=== PATIENT | male | born 1995 | race Caucasian/White ===

== ENCOUNTER 2020-02-12 14:39 | Outpatient (REF) | payer BC, SELFPAY ==
[2020-02-12 19:00] LABS: C Reactive Protein 0.02 mg/dL (< or = 0.50)
[2020-02-12 19:25] LABS: Erythrocyte Sedimentation Rate 2 MM/HR (0-15)
[2020-02-15 22:07] LABS: Lyme Abs Screen <0.90 index
[2020-02-16 13:08] LABS: A. Phagocytophilum Ab IgG <1:64 (<1:64); A. Phagocytophilum Ab IgM <1:20 (<1:20); E. Chaffeensis Ab IgG <1:64 (<1:64); E. Chaffeensis Ab IgM <1:20 (<1:20)
[2020-02-16 13:57] LABS: Babesia IgG <1:64 titer (<1:64); Babesia IgM <1:20 titer (<1:20)
== END 2020-02-12 14:40 | disposition home or self-care (01) ==
LOC: HO.MANLDS 14:39
PROVIDERS: PCP Physician Assistant; Visit Provider Physician Assistant
DX: R53.83 Other fatigue (principal)
CPT/HCPCS: 36415; 85652; 86140; 86618; 86666; 86753

== ENCOUNTER 2020-08-29 10:46 | Outpatient (REF) | payer BC, SELFPAY ==
[2020-08-31 09:36] LABS: Lyme Abs Screen <0.90 index
== END 2020-08-29 10:47 | disposition home or self-care (01) ==
LOC: HO.MANLDS 10:46
PROVIDERS: PCP Internal Medicine; Visit Provider Physician Assistant
DX: T14.8XXA Other injury of unspecified body region, initial encounter (principal); W57.XXXA Bitten or stung by nonvenomous insect and other nonvenomous arthropods, initial encounter; Y93.9 Activity, unspecified; Y92.9 Unspecified place or not applicable; Y99.9 Unspecified external cause status
CPT/HCPCS: 36415; 86617; 86618

== ENCOUNTER 2021-01-17 14:46 | Outpatient (REF) | payer BC, SELFPAY ==
[2021-01-17 19:32] LABS: MANUAL DIFF FLAG NO
[2021-01-17 19:33] LABS: Basophils Percent Auto 0.5 % (0-2); Eosinophils Absolute Auto 0.1 X10*3/uL (0.0-0.4); Eosinophils Percent Auto 1.8 % (0-4); Hematocrit 45.2 % (42-52); Hemoglobin 15.7 g/dl (14.0-18.0); Imm Gran Abs Auto 0.01 X10*3/uL (0.00-0.03); Imm Gran Pct Auto 0.2 % (0.0-0.4); Lymphocytes Absolute Auto 1.6 X10*3/uL (1.2-4.9); Lymphocytes Percent Auto 24.5 % (20-40); Mean Corpuscular HGB Conc 34.7 g/dl (31.0-36.0); Mean Corpuscular Hemoglobin 30.4 pg (27.0-33.0); Mean Corpuscular Volume 87.4 fL (80-98); Mean Platelet Volume 10.9 fL (9.4-12.4); Monocytes Absolute Auto 0.5 X10*3/uL (0.1-1.2); Monocytes Percent Auto 7.7 % (2-11); Neutrophils Absolute Auto 4.3 X10*3/uL (2.0-8.3); Neutrophils Percent Auto 65.3 % (45-73); Platelet Count 264 X10*3/uL (160-400); Red Blood Count 5.17 X10*6/uL (4.60-5.80); Red Cell Distribution Width 11.7 % (11.0-16.0); White Blood Count 6.6 X10*3/uL (4.8-10.8)
[2021-01-17 19:45] LABS: Alanine Aminotransferase 22 U/L (0-40); Albumin Level 4.5 g/dL (3.5-5.0); Alkaline Phosphatase 57 U/L (39-117); Anion Gap 10 (12-20); Aspartate Amino Transferase 16 U/L (5-37); Bilirubin Total 0.5 mg/dL (0.0-1.0); Blood Urea Nitrogen 11 mg/dL (9-16); Calcium 9.4 mg/dL (8.4-10.2); Carbon Dioxide 29 mmol/L (22-29); Chloride 104 mmol/L (96-108); Cholesterol 154 mg/dL; Estimated Glomerular Filt Rate > 60; Glucose Random 98 mg/dL (60-115); HDL Cholesterol 40 mg/dL; LDL Cholesterol Calculated 82 mg/dl; Potassium 3.9 mmol/L (3.3-5.1); Sodium 139 mmol/L (135-145); Total Protein 7.2 g/dL (6.5-8.0); Triglycerides 164 mg/dL
[2021-01-17 20:06] LABS: Free T4 (Free Thyroxine) 0.99 ng/dL (0.71-1.85); Thyroid Stimulating Hormone 1.03 uIU/mL (0.32-4.0); Vitamin D 25-OH Total 21.9 ng/mL (>30)
[2021-01-17 20:24] LABS: Folate 15.2 ng/mL (> or = 4.0); Vitamin B12 471 pg/mL (200-900)
== END 2021-01-17 14:47 | disposition home or self-care (01) ==
LOC: HO.MANLDS 14:46
PROVIDERS: PCP Physician Assistant; Visit Provider Physician Assistant
DX: Z00.00 Encounter for general adult medical examination without abnormal findings (principal); M79.10 Myalgia, unspecified site
CPT/HCPCS: 36415; 80053; 80061; 82306; 82607; 82746; 84439; 84443; 85025

== ENCOUNTER 2021-07-28 16:10 | Outpatient (REF) | payer BC, SELFPAY ==
[2021-07-31 22:22] LABS: Lyme Abs Screen <0.90 index
[2021-08-01 16:26] LABS: Babesia IgG <1:64 titer (<1:64); Babesia IgM <1:20 titer (<1:20)
[2021-08-02 04:32] LABS: A. Phagocytophilum Ab IgG <1:64 (<1:64); A. Phagocytophilum Ab IgM <1:20 (<1:20); E. Chaffeensis Ab IgG <1:64 (<1:64); E. Chaffeensis Ab IgM <1:20 (<1:20)
== END 2021-07-28 16:11 | disposition home or self-care (01) ==
LOC: HO.MANLDS 16:10
PROVIDERS: PCP Physician Assistant; Visit Provider Physician Assistant
DX: T14.8XXA Other injury of unspecified body region, initial encounter (principal); W57.XXXA Bitten or stung by nonvenomous insect and other nonvenomous arthropods, initial encounter
CPT/HCPCS: 36415; 86617; 86618; 86666; 86753

== ENCOUNTER 2021-08-14 11:23 | Outpatient (REF) | payer BC, SELFPAY ==
[2021-08-14 13:41] LABS: Alanine Aminotransferase 28 U/L (0-40); Albumin Level 4.3 g/dL (3.5-5.0); Alkaline Phosphatase 60 U/L (39-117); Anion Gap 12 (12-20); Aspartate Amino Transferase 19 U/L (5-37); Bilirubin Total 0.4 mg/dL (0.0-1.0); Blood Urea Nitrogen 12 mg/dL (9-16); Calcium 9.7 mg/dL (8.4-10.2); Carbon Dioxide 27 mmol/L (22-29); Chloride 102 mmol/L (96-108); Estimated Glomerular Filt Rate > 60; Glucose Random 84 mg/dL (60-115); Magnesium 2.3 mg/dL (1.6-2.6); Potassium 4.7 mmol/L (3.3-5.1); Sodium 136 mmol/L (135-145); Total Protein 7.2 g/dL (6.5-8.0)
[2021-08-14 14:06] LABS: Vitamin D 25-OH Total 20.2 ng/mL (>30)
[2021-08-14 14:14] LABS: Folate 17.2 ng/mL (> or = 4.0); Vitamin B12 514 pg/mL (200-900)
[2021-08-19 10:52] LABS: Vitamin B1 22 nmol/L (8-30)
== END 2021-08-14 11:24 | disposition home or self-care (01) ==
LOC: HO.MANLDS 11:23
PROVIDERS: PCP Internal Medicine; Visit Provider Physician Assistant
DX: R53.83 Other fatigue (principal)
CPT/HCPCS: 36415; 80053; 82306; 82607; 82746; 83735; 84425

== ENCOUNTER 2023-01-31 16:01 | Outpatient (REF) | payer BC, SELFPAY ==
[2023-01-31 16:16] LABS: MANUAL DIFF FLAG NO
[2023-01-31 16:36] LABS: Basophils Percent Auto 0.5 % (0-2); Eosinophils Absolute Auto 0.1 X10*3/uL (0.0-0.4); Hemoglobin 16.4 g/dl (14.0-18.0); Imm Gran Abs Auto 0.02 X10*3/uL (0.00-0.03); Imm Gran Pct Auto 0.2 % (0.0-0.4); Lymphocytes Absolute Auto 1.6 X10*3/uL (1.2-4.9); Lymphocytes Percent Auto 19.6 % (20-40); Mean Corpuscular HGB Conc 34.9 g/dl (31.0-36.0); Mean Corpuscular Volume 86.1 fL (80.0-98.0); Mean Platelet Volume 9.7 fL (9.4-12.4); Monocytes Absolute Auto 0.6 X10*3/uL (0.1-1.2); Monocytes Percent Auto 7.3 % (2-11); Neutrophils Absolute Auto 5.9 x10*3/uL (2.0-8.3); Neutrophils Percent Auto 71.4 % (45-73); Platelet Count 290 X10*3/uL (160-400); Red Blood Count 5.46 X10*6/uL (4.60-5.80); Red Cell Distribution Width 11.8 % (11.0-16.0); White Blood Count 8.3 X10*3/uL (4.8-10.8)
[2023-01-31 16:42] LABS: Estimated Average Glucose 94 mg/dL; Hemoglobin A1c % 4.9 % (<6.0)
[2023-01-31 16:55] LABS: Alanine Aminotransferase 30 U/L (0-40); Albumin Level 4.7 g/dL (3.5-5.0); Alkaline Phosphatase 68 U/L (39-117); Anion Gap 13 (12-20); Aspartate Amino Transferase 19 U/L (5-37); Bilirubin Total 0.6 mg/dL (0.0-1.0); Blood Urea Nitrogen 11 mg/dL (9-16); Calcium 9.8 mg/dL (8.4-10.2); Carbon Dioxide 30 mmol/L (22-29); Chloride 101 mmol/L (96-108); Cholesterol 187 mg/dL (<200); Estimated Glomerular Filt Rate > 60; Glucose Random 89 mg/dL (60-115); HDL Cholesterol 44 mg/dL (>40); LDL Cholesterol Calculated 117 mg/dL (<100); Potassium 3.9 mmol/L (3.3-5.1); Sodium 140 mmol/L (135-145); Total Protein 7.6 g/dL (6.5-8.0); Triglycerides 131 mg/dL (<150)
[2023-02-04 12:18] LABS: VITAMIN D (1,25 OH) D3 14 pg/mL; Vit D (1,25-Dihydroxy) Total 49 pg/mL (18-72); Vitamin D (1,25 OH) D2 35 pg/mL
== END 2023-01-31 16:02 | disposition home or self-care (01) ==
LOC: HO.LAB 16:01
PROVIDERS: PCP Physician Assistant; Visit Provider Physician Assistant
DX: Z00.00 Encounter for general adult medical examination without abnormal findings (principal); E55.9 Vitamin D deficiency, unspecified
CPT/HCPCS: 36415; 80053; 80061; 82652; 83036; 85025

== ENCOUNTER 2023-09-03 16:13 | Outpatient (REF) | payer BC, SELFPAY ==
[2023-09-06 06:25] LABS: Lyme Abs Screen <0.90 index
[2023-09-13 13:54] LABS: A. Phagocytophilum Ab IgG <1:64 (<1:64); A. Phagocytophilum Ab IgM <1:20 (<1:20); E. Chaffeensis Ab IgG <1:64 (<1:64); E. Chaffeensis Ab IgM <1:20 (<1:20)
[2023-09-15 12:49] LABS: Babesia IgG <1:64 titer (<1:64); Babesia IgM <1:20 titer (<1:20)
== END 2023-09-03 16:14 | disposition home or self-care (01) ==
LOC: HO.MANLDS 16:13
PROVIDERS: Visit Provider Internal Medicine
DX: T14.8XXA Other injury of unspecified body region, initial encounter (principal); W57.XXXA Bitten or stung by nonvenomous insect and other nonvenomous arthropods, initial encounter
CPT/HCPCS: 36415; 86617; 86618; 86666; 86753

== ENCOUNTER 2025-02-12 07:44 | Outpatient (REF) | payer OTHER, SELFPAY ==
--- OUTSIDE RECORDS SUMMARY | 2025-02-12 07:49 | XMS_ITS | Encounter Summary ---
Author Organization [facility] Address [facility] [employer] [address] [address] Phone Care Team Providers Care Ore Puncher Name Role Phone OvidioRamirez matos Primary Care Provider [phone] OvidioRamirez matos Unavailable Reason for Referral * Outpatient Procedure - Closed Specialty Diagnoses / Procedures Referred By Vikki olsen Referred To Contact Diagnoses Syncope and collapse Procedures Adult Echo TTE Rosio Paredes PA Phone: tel: fax: Referral ID Status Reason Start Date Expiration Date Visits Re quested Visits Authorized [id number] Closed 02/20/2022 02/20/2023 1 1 Encounter Details Date Type Department Care Team (Latest Contact Info) Description 02/20/2022 Transcribe Orders Virtual Department [address] [place] [phone] Rosio Paredes PA [address] [facility] [place] [address] [place] [address] Syncope and collapse Social History Tobacco Use Types Packs/Day Years Used Date Smoking Tobacco: Never Smokeless Tobacco: Never Sex and Gender Information Value Date Recorded Sex Assigned at Male 08/06/2019 5:28 PM EDT Legal Sex Male 11:59 AM EST Gender Identity Male 08/06/2019 5:28 PM EDT Sexual Orientation Not on file documented as of this encounter Plan of Treatment Not on file documented as of this encounter Results * TTE COMPREHENSIVE W/ AGITATED SALINE (04/26/2022 11:53 AM EST) Body Surface Area 1.97 m2 Height 175 cm Weight 82 kg Systolic BP 144 mmHg Diastolic BP 87 mmHg Left Atrium Dimension Anterior-Posterior 34 15 - 40 mm Aortic Valve Mean Gradient 4 mmHg Aortic Valve Time Velocity Integral 208 mm Aortic Valve Peak Velocity 124.0 cm/s Aortic Valve Peak Velocity 124.0 cm/s Aortic Valve Peak Gradient 6 mmHg Aortic Sinus Diameter 32 mm Ascending Aorta Diameter 32 mm Inferior Vena Cava Diameter 14 0.0 - 21 mm Interventricular Septum Thickness 8 mm Left Ventricle Internal Diameter End Diastole 50 42 - 58 mm Left Ventricle Internal Diameter End Systole 34 25 - 40 mm Left Ventricular Outflow Tract Diameter 25.0 mm LVOT VTI REST 166 mm Left Ventricular Outflow Tract Velocity 1.0 m/s Left Ventricular Outflow Tract Gradient at Rest 4 mmHg Left Ventricular Posterior Wall Thickness 9 mm Ejection Fraction 59 50 - 75 Percent Mitral Valve A Wave Speed 48.0 cm/s Mitral Valve E Wave Speed 78.8 cm/s Right Ventricle Basal Diameter 36 25 - 41 mm Raw LV EF% 54 % Left Atrial Volume 40 mL Left Atrial Volume Index 20.30 mL/m2 Right Ventricle TAPSE 19 mm Right Ventricle Pulse Doppler S Wave 14.0 cm/s Aortic Valve Sinus Index 1 16 20 - 32 mm Ascending Aorta Diameter 16 mm Aortic Sinus Index 16 mm Ascending Aorta Index 16 mm Anatomical Region Laterality Modality Heart Ultrasound Narrative 04/26/2022 3:22 PM EST Normal LV size and function EF 60%. Normal RV size and function. Normal diastolic function. Normal study. Bubble study was performed with and without Valsalva. There were some bubbles crossing with Valsalva. This is consistent with a very mild amount of right to left shunting likely due to a patent foramen ovale. Left Ventricle The left ventricular cavity size and wall thickness are normal. Left ventricular systolic function is normal. The estimated ejection fraction is 59% (Normal 50- 75%). The left ventricular ejection fraction was measured by the single dimension method. Left ventricular diastolic function appears within normal limits for age. There is no evidence of left ventricular thrombus. Right Ventricle The right ventricular size is normal. The right ventricular systolic function is normal. Left Atrium The left atrium is normal in size. The LA volume is 40 mL. The LA volume index is 20.3 mL/m2 (normal indexed value is 16-34 mL/m2). The pulmonary venous flow profiles are normal. Right Atrium The right atrium is normal in size. The IVC measures 14 mm (normal <=21 mm). The IVC demonstrates normal collapse with inspiration which is consistent with normal RA pressure. Mitral Valve E/A ratio is 1.6. E/E' avg is 5.8. Med E' velocity is 11.3cm/s. Lat E' velocity is 15.8cm/s. There is no evidence of mitral stenosis. There is no evidence of mitral valve prolapse. There is trace mitral regurgitation detected by spectral and color Doppler. Tricuspid Valve There is no evidence of tricuspid stenosis. There is no evidence of significant tricuspid regurgitation by color and spectral Doppler. Aortic Valve The aortic valve is tricuspid. There is no evidence of valvular aortic stenosis. The peak aortic valve gradient is 6 mmHg. The mean aortic gradient is 4 mmHg. There is no evidence of aortic regurgitation by color and spectral Doppler. The visualized portions of the thoracic aorta appear normal. Pulmonic Valve There is no evidence of pulmonic stenosis. There is evidence of trace pulmonary regurgitation by color and spectral Doppler. Pericardium There is no evidence of pericardial effusion. Interatrial Septum There is evidence of a patent foramen ovale by agitated saline contrast with Valsalva maneuver. General Findings Technically adequate echocardiogram. Technique(s) used in the evaluation: Color flow Doppler and Spectral Doppler. The predominant rhythm during the study was sinus. 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 It is not the complete legal health record.[facility]
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
--- OUTSIDE RECORDS SUMMARY | 2025-02-12 07:49 | XMS_ITS | Clinical Summary ---
Author Organization [facility] Address [address] [place] [address] Phone Care Team Providers Care Double Head Machine Operator Name Role Phone Ramirez Chatterjee DO Primary Care Provider [phone] Allergies No known active allergies Medications ergocalciferol (DRISDOL) 50,000 unit capsule Take 1 capsule by mouth once a week. 02/06/2024 Active Active Problems Problem Noted Date Diagnosed Date Attention deficit hyperactiv ity disorder, predominantly inattentive type 11/04/2018 Depressive disorder 11/04/2018 Methicillin resistant Staphylococcus aureus infe ction 11/04/2018 Migraine with aura 11/04/2018 Pneumonia 11/04/2018 Myofascial pain 11/04/2018 Scoliosis deformity of spine 11/04/2018 Immunizations Immunization Administration Dates Next Due COVID-19 (Pre-01/14) AstraZe neca Vaccine, rS-ChAdOx1, PF 07/07/2020,06/15/2020 DTaP 01/22/1997, 5,1993,05/10,1993 HPV,quadrivalent 09/02/2013,08/25/2012, 2 Hepatitis A, ped/adol, 2 dose 02/17/2014 Hepatitis B 1993,1993,1993 Hib,PRP-T 04/19/1994, 4,1993,03/06 Influenza quadrivalent nasal 03/13/2011 Influenza, Unspecified Formulation 03/11/2013 MMR 01/04/1998,04/19/1994 Meningococcal MCV4P 08/14/2011,04/18/2005 Polio - OPV 01/22/1997, 5,1993,03/06 Td, unspecified formulation 04/18/2005 Tdap 04/18/2005 Varicella 05/21/2007,02/17/1997 Social History Tobacco Use Types Packs/Day Years Used Date Smoking Tobacco: Never Smokeless Tobacco: Never Tobacco Cessation:Counseling Given: Yes Education Answer Date Recorded Are you interested in more education? Not on jarred e 07/20/2022 Are you concerned about learning? Not on file 07/20/2022 No 07/20/2022 No 07/20/2022 Food Answer Date Recorded Within the past 6 months we worried whether our food would run out before we got money to buy more. Never True 08/29/2024 Within the past 6 months the food we bought just didn't last and we didn't have enough money to get more. Never True Residential Stability Answer Date Recor ded What is your housing situation today? I have micheline sing 08/29/2024 How many times have you move d in the past 12 months? Zero (I did not move) 08/29/2024 Paying for Meds Answer Date Recorded Do you have trouble paying for medicines? No 08/29/2024 Paying Utility Bills Answer Date Record ed Do you have trouble paying your heating or elect ricity bill? No 08/29/2024 Transportation Answer Date Recorded Has the lack of transportati on kept you from medical appointments or from getting medications? No 08/29/2024 Digital Access Answer Date Recorded No 08/29/2024 Yes 08/29/2024 Do you have reliable internet access at home? Ye s 08/29/2024 Do you have a device (e.g., phone, tablet, computer) with a working camera? Yes 08/29/2024 Intimate Partner Violence Answer Date R ecorded Are you denied basic needs s uch as food, clothing, or medical care? No 08/29/2024 In the past 12 months have y ou been in a relationship with a person who hurts, threatens, or tries to control you? No 08/29/2024 Are you denied basic needs s uch as food, clothing, or medical care? No 08/29/2024 In the past 12 months have y ou been in a relationship with a person who hurts, threatens, or tries to control you? No 08/29/2024 Sex and Gender Information Value Date Recorded Sex Assigned at Male 08/06/2019 5:28 PM EDT Legal Sex Male 11:59 AM EST Gender Identity Male 08/06/2019 5:28 PM EDT Sexual Orientation Not on file Last Filed Vital Signs Vital Sign Reading Time Taken Comments Blood Pressure 132/83 08/29/2024 10:58 AM EDT Pulse 58 08/29/2024 10:58 AM EDT Temperature 36.2 C (97.2 F) 08/29/2024 10:58 AM EDT Respiratory Rate 18 08/29/2024 8:39 AM EDT Oxygen Saturation 99% 08/29/2024 10:58 AM EDT Inhaled Oxygen Concentration - - Weight 90.8 kg (200 lb 1.6 oz) 08/29/2024 8:39 A M EDT Height 175.3 cm (5' 9 ) 08/29/2024 9:28 AM EDT Body Mass Index 29.55 08/29/2024 8:39 AM EDT Plan of Treatment Health Maintenance Due Date Last Done Comments DEPRESSION SCREENING 2005 HEPATITIS C SCREENING 2011 HIV ONE-TIME SCREENING (18-65 YEARS) 2011 Adult Td,Tdap Booster 04/18/2015 04/18/2005, 006 INFLUENZA VACCINE (#1) 2024 , 03/11/2013, 03/13/2011 COVID-19 VACCINE ( season) 2024 01/19/2021, 07/07/2020, 07/07/2020, Additional history exists HIB VACCINES Completed 04/19/1994, 06/23, 1993, Additional history exists IPV VACCINES Completed 01/22/1997, 06/24, 1993, Additional history exists MENINGOCOCCAL VACCINES (ACWY) Completed 08/14/2011, 04/18/2005 HEPATITIS A VACCINES Aged Out 02/17/2014 No long er eligible based on patient's age to complete this topic SMOKING STATUS SCREENING (Once After 26 Yrs) Completed 12/20/2020 MENINGOCOCCAL VACCINES (B) Aged Out N o longer eligible based on patient's age to complete this topic PNEUMOCOCCAL VACCINES (0-49 years) Aged Out No longer eligible based on patient's age to complete this topic Medical Devices Not on file Insurance [facility] H[facility] POS [facility] HMO POS [facility] HMO POS [facility] POS [facility] POS [facility] POS [facility] POS [facility] HMO POS [facility] HMO POS [employer] Care Teams Double Head Machine Operator Relationship Specialty Start Date End Date Ramirez Chatterjee DO [address] [place] [id number] PCP - General Internal Medicine 08/06/19 Additional Source Comments The information contained in this document represents components of the legal health record. It is not the complete legal health record.[facility]
--- OUTSIDE RECORDS SUMMARY | 2025-02-12 07:49 | XMS_ITS | Encounter Summary ---
Author Organization [facility] Address [address] [place] [address] Phone Care Team Providers Care Dressmaker Helper Name Role Phone Qasim Schneider MD Primary Care Provider [phone] Encounter Details Date Type Department Care Team (Late st Contact Info) Description 10/31/2016 Conversion Encounter [facility] - [address], [address] [place] [address] Qasim Schneider MD [address] [place] [address] Social History Tobacco Use Types Packs/Day Years Used Date Smoking Tobacco: Never Assessed Sex and Gender Information Value Date Recorded Sex Assigned at Not on file Legal Sex Male 2:44 PM EST Gender Identity Not on file Sexual Orientation Not on file documented as of this encounter Plan of Treatment Not on file documented as of this encounter Visit Diagnoses Not on filedocumented in this encounter Care Teams Dressmaker Helper Relationship Specialty Start Date End Date Qasim Schneider MD [address] [place] [address] PCP - General 05/15/16 09/18/20 documented as of this encounter
--- OUTSIDE RECORDS SUMMARY | 2025-02-12 07:49 | XMS_ITS | Clinical Summary ---
Author Organization [facility] Address [address] [place] [address] Phone Care Team Providers Care Computer Technology Trainer Name Role Phone Unavailable Primary Care Provider Unavailabl e Immunizations Immunization Administration Dates Next Due DTaP 01/22/1997, 5,1993, 994,1993 HPV, Quadrivalent 09/02/2013,08/25/2012,08/14/19 12 Hep A, ped/adol 02/17/2014 Hep B, ped/adol 1993,1993,1993 Hib (PRP-T) 04/19/1994, 4,1993, 993 Influenza 03/11/2013 Influenza, intranasal, trivalent 03/13/2011 MMR 01/04/1998,04/19/1994 Meningococcal Conj (Menactra) MCV4P 08/14/2011,0 04/18/2005 OPV 01/22/1997, 5,1993, 993 Tdap 04/18/2005 Varicella 05/21/2007,02/17/1997 Family History Relation Name Status Comments Father Father: allergi es; Adult-onset diabetes [DM type 2] Other 1 allergies; Adul t-onset diabetes [DM type 2] Other 2 hearing problem s; lung disease Paternal Grandfather Pat GFa ther: hearing problems; lung disease Social History Tobacco Use Types Packs/Day Years Used Date Smoking Tobacco: Never Assessed Sex and Gender Information Value Date Recorded Sex Assigned at Not on file Legal Sex Male 2:44 PM EST Gender Identity Not on file Sexual Orientation Not on file Last Filed Vital Signs Vital Sign Reading Time Taken Comments Blood Pressure 100/63 09/02/2013 12:00 AM EDT Pulse 76 09/02/2013 12:00 AM EDT Temperature 36.6 C (97.9 F) 08/17/2015 12:00 AM EDT Respiratory Rate - - Oxygen Saturation - - Inhaled Oxygen Concentration - - Weight 84.4 kg (186 lb) 08/17/2015 12:00 AM EDT Height 176.5 cm (5' 9.5 ) 09/02/2013 12:00 AM ED T Body Mass Index 27.07 09/02/2013 12:00 AM EDT Plan of Treatment Health Maintenance Due Date Last Done Comments DTaP,Tdap,and Td Vaccines (7 - Td or Tdap) 04/18/2015 04/18/2005, 01/22/1997, 07/17/1994, Additional history exists Influenza Vaccines (#1) 2024 03/11/2013, 03/13 COVID-19 Vaccine (2024- season) 2024 Hepatitis B Vaccines Completed 1993, 1993, 1993 HIB Vaccines Completed 04/19/1994, 06/23, 1993, Additional history exists IPV Vaccines Completed 01/22/1997, 06/24, 1993, Additional history exists MMR Vaccines Completed 01/04/1998, 04/19/1994 Varicella Vaccines Completed 05/21/2007, 02/17/1997 Meningococcal Vaccine Completed 08/14/2011, 006 HPV Vaccines Completed 09/02/2013, 0605/2012, 08/14/2011 Hepatitis A Vaccines Aged Out 02/17/2014 No long er eligible based on patient's age to complete this topic Men B Vaccine Aged Out No longer elig ible based on patient's age to complete this topic Pneumococcal Vaccine Aged Out No long er eligible based on patient's age to complete this topic
--- OUTSIDE RECORDS SUMMARY | 2025-02-12 07:49 | XMS_ITS | Encounter Summary ---
Author Organization [facility] Address [facility] [address] [address] Phone Care Team Providers Care Automobile Damage Field Appraiser Name Role Phone Ovidioshawna Ramirez Lemus DO Primary Care Provider [phone] Ramirez Chatterjee DO Unavailable Encounter Details Date Type Department Care Team (Late st Contact Info) Description 02/20/2022 Procedure [facility] [address] [place] [address] Social History Tobacco Use Types Packs/Day Years [...] Diagnoses Not on filedocumented in this encounter Additional Health Concerns Infection Onset Date Last Indicated Resolved Time MRSA Comment:Infection Loaded by the Load Infection Utility 03/30/2015 03/30/2015 05/09/2022 1:[address] documented as of this encounter Care Teams Automobile Damage Field Appraiser Relationship Specialty Start Date End Date Ramirez Chatterjee DO [address] [place] [address] PCP - General Internal Medicine 08/06/19 Ramirez Chatterjee DO [address] [place] [address] [email or web address] Insurance Assigned Provider 06/29/23 03/04/24 documented as of this encounter Additional Source Comments The information contained in this document represents components of the legal health record. It is not the complete legal health record.[facility]
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
--- OUTSIDE RECORDS SUMMARY | 2025-02-12 07:49 | XMS_ITS | Encounter Summary ---
Author Organization [facility] Address [facility] [employer] [facility] [address] [place] [address] Phone Care Team Providers Care Seasonal Greenery Bundler Name Role Phone Ramirez Chatterjee DO Primary Care Provider [phone] Ramirez Chatterjee DO Unavailable Encounter Details Date Type Department Care Team (Latest Contact Info) Description 02/20/2022 Transcribe Orders Virtual Department [address] [place] [address] Rosio Paredes PA [address] [place] [address] [place] [address] Syncope and collapse (Primary Dx) Social History Tobacco Use Types Packs/Day Years [...] documented as of this encounter Results * ECG 12-LEAD (02/26/2022 3:34 PM EST) Ventricular Rate EKG/MIN 58 BPM [facility] Atrial Rate 58 BPM [facility] KS Interval 136 ms [facility] QRS Duration 92 ms [facility] QT Interval 378 ms [facility] QTC Interval 371 ms [facility] P [place] 36 degrees [facility] R Wave [place] 19 degrees [facility] T Wave [place] 32 degrees [facility] 02/26/2022 3:34 PM EST 02/27/2022 1:34 PM EST Narrative [facility] - 02/27/2022 1:34 PM EST Sinus bradycardia Otherwise normal ECG When compared with ECG of 17-SEP-2013 09:18, No significant change was found Confirmed by Tino Mejias ([id number]) on 02/27/2022 1:34:30 PM us Rosio CONTRERAS ECG ORDERABLES Final Resul t [facility] documented in this encounter Visit Diagnoses Diagnosis Syncope and collapse- Primary Syncope and collapse documented in this encounter Additional Health Concerns Infection Onset Date Last Indicated Resolved Time MRSA Comment:Infection Loaded by the Load Infection Utility 03/30/2015 03/30/2015 05/09/2022 1:[address] documented as of this encounter Care Teams Seasonal Greenery Bundler Relationship Specialty Start Date End Date Ramirez Chatterjee DO [address] [place] [address] PCP - General Internal Medicine 08/06/19 Ramirez Chatterjee DO [address] [place] [address] [email or web address] Insurance Assigned Provider 06/29/23 03/04/24 documented as of this encounter Additional Source Comments The information contained in this document represents components of the legal health record. It is not the complete legal health record.[facility]
[2025-02-12 14:01] LABS: MANUAL DIFF FLAG NO
[2025-02-12 14:16] LABS: Hematocrit 46.1 % (42.0-52.0); Hemoglobin 15.7 g/dl (14.0-18.0); Imm Gran Abs Auto 0.02 X10*3/uL (0.00-0.03); Imm Gran Pct Auto 0.3 % (0.0-0.4); Lymphocytes Absolute Auto 1.8 X10*3/uL (1.2-4.9); Mean Corpuscular HGB Conc 34.1 g/dl (31.0-36.0); Mean Corpuscular Hemoglobin 29.6 pg (27.0-33.0); Mean Corpuscular Volume 86.8 fL (80.0-98.0); NRBC Abs Auto 0.000 X10*3/uL (0.0-0.012); NRBC Pct Auto 0.0 /100WBC (0.0-0.2); Platelet Count 295 X10*3/uL (160-400); Red Blood Count 5.31 X10*6/uL (4.60-5.80); White Blood Count 6.5 X10*3/uL (4.8-10.8)
[2025-02-12 14:41] LABS: Alanine Aminotransferase 46 U/L (0-40); Albumin Level 4.5 g/dL (3.5-5.0); Alkaline Phosphatase 74 U/L (39-117); Anion Gap 7 (12-20); Aspartate Amino Transferase 26 U/L (5-37); Blood Urea Nitrogen 21 mg/dL (9-16); Calcium 9.1 mg/dL (8.4-10.2); Carbon Dioxide 28 mmol/L (22-29); Chloride 108 mmol/L (96-108); Cholesterol 167 mg/dL (<200); Estimated Glomerular Filt Rate > 60; HDL Cholesterol 34 mg/dL (>40); Iron 159 mcg/dL (45-160); Percent Iron Saturation 62 % (15-50); Potassium 4.4 mmol/L (3.3-5.1); Sodium 139 mmol/L (135-145); Total Iron Binding Capacity 256 mcg/dL (228-428); Total Protein 7.0 g/dL (6.5-8.0); Triglycerides 111 mg/dL (<150); Unsaturated Iron Binding 97 ug/dL
[2025-02-12 14:44] LABS: Parathyroid Hormone Intact 53.6 pg/mL (8.7-77.1)
[2025-02-12 14:59] LABS: Ferritin 247 ng/mL (20-250)
== END 2025-02-12 07:45 | disposition home or self-care (01) ==
LOC: HO.MANLDS 07:44
PROVIDERS: Visit Provider Physician Assistant
DX: Z00.00 Encounter for general adult medical examination without abnormal findings (principal); R10.A3 Flank pain, bilateral; E55.9 Vitamin D deficiency, unspecified
CPT/HCPCS: 36415; 80053; 80061; 82306; 82728; 83036; 83540; 83970; 84443; 85025; 85652